=== PATIENT | female | born 1955 | race Caucasian/White ===

== ENCOUNTER → 2025-06-17 09:10 | Outpatient (BNVA) | payer MEDICARE, SELFPAY | PROVIDERS: PCP Physician Assistant Medical; Referring Provider Physician Assistant Medical; Visit Provider Student in an Organized Health Care Education/Training Program | DX: M16.12 Unilateral primary osteoarthritis, left hip (principal) | CPT/HCPCS: 99203 ==

== ENCOUNTER 2025-07-29 13:04 | Outpatient (CLI) | payer MEDICARE, SELFPAY ==
--- NOTE | 2025-07-29 10:00 | DI.RAD_ITS ---
Exam(s) XR PELVIS AP EXAM: XR PELVIS AP CLINICAL HISTORY: PRE OP L [facility]. TECHNIQUE: 2D digital imaging was performed. Single AP view. COMPARISON: CR XR HIP MIN 2V LT from 03/30/2024 FINDINGS: BONES: No acute fracture is present. No bony destructive lesion is seen. JOINTS: No dislocation present. Severe narrowing of the left hip joint space, greater superiorly. Prominent periarticular spurring and subchondral cyst formation. There is also flattening of the femoral head and remodeling of the acetabulum. There are [id number] degenerative changes of the right hip. SOFT TISSUE: Large calcified uterine fibroid. Surgical clip in pelvis. Vascular calcifications. IMPRESSION: End-stage degenerative changes of the left hip. DATA REPOSITORY: RADIATION DOSE DELIVERED:
== END 2025-07-29 13:05 | disposition home or self-care (01) ==
LOC: DIORS 13:04
PROVIDERS: PCP Student in an Organized Health Care Education/Training Program; Referring Provider Physician Assistant Medical; Visit Provider Physician Assistant
DX: Z01.818 Encounter for other preprocedural examination (principal); M16.12 Unilateral primary osteoarthritis, left hip
CPT/HCPCS: 99024; 72170

== ENCOUNTER 2025-08-06 08:15 | Day surgery (SDC) | payer MEDICARE, SELFPAY ==
--- NOTE | 2025-08-06 07:30 | PDOC.DSDIS_ITS ---
Date of service: 08/06/25 Discharge Plan Disposition Patient Disposition: Home Condition: Good Discharge Details Reason For Visit: Left hip DJD Attending Provider: Corbin Hayden Primary Care Provider: Katherine Herrera Home Meds and New Rx's Prescriptions: New acetaminophen 500 mg tablet 1,000 mg PO Q8H PRN Qty: 90 0RF Rx Instructions: Take two tablets up to every 8 hours as needed for pain aspirin 81 mg tablet,delayed release (DR/EC) 81 mg PO BID 30 Days Qty: 60 0RF celecoxib [Celebrex] 200 mg capsule 200 mg PO BID PRNQty: 60 0RF Rx Instructions: Take one tablet twice daily for pain and inflammation docusate sodium [Colace] 100 mg capsule 100 mg PO BID Qty: 28 0RF tramadol 50 mg tablet 50 mg PO Q6H PRN (Reason: severe postoperative pain) Qty: 12 0RF Rx Instructions: Take one tablet up to every 6 hours as needed for severe pain dexamethasone 4 mg tablet 4 mg PO DAILY Qty: 2 0RF Rx Instructions: Take one tablet once daily for two days Continued gabapentin 600 mg tablet 600 mg PO BID metoprolol succinate 200 mg tablet extended release 24 hr 200 mg PO DAILY gemfibrozil 600 mg tablet 600 mg PO DAILY oxybutynin chloride 5 mg tablet 5 mg PO DAILY spironolactone 50 mg tablet 50 mg PO DAILY Calcium 600 with Vitamin D3 600 mg-10 mcg (400 unit) tablet,chewable 1 tab PO DAILY loratadine 10 mg tablet 10 mg PO HS omeprazole 40 mg capsule,delayed release(DR/EC) 40 mg PO DAILY Discharge Instructions Additional Instructions: Total Hip Discharge Instructions Activity: The most important activity is to walk. You should try to take short walks a few times a day. You have no restrictions on movement or positioning, but do not try to force what you do. You will find some stiffness and weakness with hip flexion (lifting your knee). Do not try to strengthen this too early, continue to practice walking and stairs and this will come. - Outpatient physical therapy can be helpful to help return you to a normal gait and improve your flexibility and strength. This can start around 2 weeks. For some patients, it´s not necessary. Usually this is determined at the time of discharge or at the first post-operative visit. - You should wear the ESME hose on both legs for 2 weeks. Dressing: Keep the surgical dressing in place for at least one week. After the first week it may be removed and replace with light gauze and tape or nothing. It may get wet after 3 days but avoid soaking the dressing. If it gets wet, just lightly pat dry. It is important to always keep some gauze between skin folds, especially when you are sitting. Spend some time with the wound exposed when you are lying flat as the incision does wrinkle onto itself. Medications: - You should take Tylenol and an anti-inflammatory Celebrex as your primary pain control medications. If the Celebrex is too expensive or not covered, please call the office for another alternative (Advil/Ibuprofen or Naproxen/Aleve). - You have been prescribed a stronger pain medication Tramadol for breakthrough pain, take as needed as prescribed. - You take a stomach acid reduction agent Omeprazole at baseline - continue with this medication to help reduce stomach acid and reflux. - You have also been prescribed Decadron to help with post-operative nausea and pain. You will take this for two days starting tomorrow. - You will be taking Aspirin 81mg twice a day for DVT prevention unless instructed otherwise. - If you have constipation you should take Colace (which has been prescribed) or Miralax (which is available [id number]). It takes most people 3-4 days to have a bowel movement. Follow-up: 2 weeks If you have any acute concerns or questions, please do not hesitate to contact the office at [phone]. You may contact Dr. Hayden with any questions after hours through the hospital at [phone] or on his cell phone at [phone]. Stand Alone Forms: Anesthesia Discharge Inst., [facility] Bowling ([facility]), Portal Information Referrals: Corbin Hayden MD [ [facility] STAFF PHYSICIAN, Orthopaedic Surgical] Equipment/Supplies: Walker Activity:: Elevate Remove Dressings/Wound Care:: Do Not Remove Shower/Bathe:: Cover Diet:: As Tolerated Discharge Orders Discharge Orders: Discharge Order (Routine); Ordered 08/06/25 Ordered By: Shante Duron
[2025-08-06 08:55] VITALS: BP 186/87; PULSE 75; RESP 18; TEMP 36.2; O2SAT 97
[2025-08-06] MEDS: Celecoxib 200 MG CAP 400 MG PO (09:04)
[2025-08-06] MEDS: Acetaminophen 500 MG TAB 1000 MG PO (09:04)
[2025-08-06] MEDS: Lactated Ringers 1,000 ML 80 ML IV (09:31)
--- NOTE | 2025-08-06 10:00 | W.ANESPRE ---
General Info Date of Service Date Performed: 08/06/25 Height: 5 ft 3 in Weight: 76.5 kg Body Mass Index (BMI): 29.8 Surgical Procedure: Operation Date: 08/06/25 10:35 Proposed Procedure Side Surgeon p Hip Total Hip Anterior Left Corbin Hayden MD Actual Procedure Side Surgeon p Hip Total Hip Anterior Left Corbin Hayden MD Pre-Op Diagnosis Post-Op Diagnosis Osteoarthritis of left hip Meds Allergies and Home Medications Allergies Allergy/AdvReac Type Severity Reaction Status Date / Time morphine Allergy Severe Unknown Verified 08/06/25 08:46 lidocaine (From Xylocaine) Allergy Intermediate Skin Rash Verified 08/06/25 08:46 codeine Allergy Other (See Verified 08/06/25 08:46 Comment) egg Allergy Anaphylaxis Verified 08/06/25 08:46 Penicillins Allergy Unknown Verified 08/06/25 08:46 Home Medication Medication Instructions Recorded gabapentin 600 mg tablet 600 mg PO BID 04/09/25 gemfibrozil 600 mg tablet 600 mg PO DAILY 04/09/25 metoprolol succinate 200 mg 200 mg PO DAILY 04/09/25 tablet,extended release 24 hr oxybutynin chloride 5 mg tablet 5 mg PO DAILY 04/09/25 spironolactone 50 mg tablet 50 mg PO DAILY 04/09/25 calcium 600 mg (as carbonate)-vit 1 tab PO DAILY 06/17/25 D3 10 mcg (400 unit) chewable tablet (Calcium 600 with Vitamin D3) loratadine 10 mg tablet 10 mg PO HS 07/29/25 omeprazole 40 mg capsule,delayed 40 mg PO DAILY 08/02/25 release acetaminophen 500 mg tablet 1,000 mg (2 x 500 mg) PO Q8H PRN 08/06/25 pain #90 tabs aspirin 81 mg tablet,delayed 81 mg PO BID 30 days #60 tabs 08/06/25 release celecoxib 200 mg capsule (Celebrex) 200 mg PO BID PRN #60 caps 08/06/25 dexamethasone 4 mg tablet 4 mg PO DAILY #2 tabs 08/06/25 docusate sodium 100 mg capsule 100 mg PO BID #28 caps 08/06/25 (Colace) tramadol 50 mg tablet 50 mg PO Q6H PRN severe 08/06/25 postoperative pain #12 tabs Current Visit Medications: Current Medications Generic Name Dose Route Start Last Admin Trade Name Freq PRN Reason Stop Dose Admin Acetaminophen 1,000 mg 08/06/25 06:00 08/06/25 09:04 Acetaminophen 500 Mg Tab PO 08/06/25 23:59 1,000 mg PREOP COBY Administration Celecoxib 400 mg 08/06/25 06:00 08/06/25 09:04 Celecoxib 200 Mg Cap PO 08/06/25 23:59 400 mg PREOP COBY Administration Ringer's Solution 1,000 mls @ 80 mls/hr 08/06/25 06:00 08/06/25 09:31 IV 08/06/25 23:59 80 mls/hr INFUSION COBY Administration Cefazolin Sodium/Dextrose 2 gm in 50 mls @ 100 mls/hr 08/06/25 06:00 Ancef Duplex IVPB 08/06/25 23:59 PREOP COBY Tranexamic Acid/Sodium Chloride 1,000 mg in 100 mls @ 600 mls/hr 08/06/25 06:00 IVPB 08/06/25 23:59 PREOP COBY Cefazolin Sodium/Dextrose 1 gm in 50 mls @ 100 mls/hr 08/06/25 08:00 Ancef Duplex IVPB 08/07/25 00:29 Q8H COBY IV Miscellaneous Supplies 1 each 08/06/25 06:00 Iv Access IV 08/06/25 23:59 DIRECTED COBY Sodium Chloride 0 ml 08/06/25 06:00 Normal Saline Flush 10 Ml Syr IV 08/06/25 23:59 PRN PRN Sodium Chloride 0 ml 08/06/25 06:00 Normal Saline 10 Ml Vial IJ 08/06/25 23:59 DIRECTED PRN Sterile Water 0 ml 08/06/25 06:00 Water,Injection,Sterile 10 Ml Vial IJ 08/06/25 23:59 DIRECTED PRN Tramadol HCl 50 mg 08/06/25 07:29 Tramadol 50 Mg Tab PO 09/05/25 07:28 Q4H PRN PRN Pain Tranexamic Acid 1,300 mg 08/06/25 07:29 Tranexamic Acid 650 Mg Tab PO 09/05/25 07:28 ONCE PRN postoperative PFSH Active Problems Active Problems: Problem Status Onset Code Osteoarthritis of left hip Chronic M16.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 Surgical History Surgical History History of laminectomy C3-6 02/2024 Tobacco Smoking/Tobacco Use Status: Former Tobacco Use Passive smoking exposure: Yes Alcohol Alcohol Intake: current Alcohol intake frequency: holidays/special occasions only Alcohol type: beer Substance Use Substance use: Never Substance use type: does not use Vital Signs and Lab Results Vital Signs Most Recent Vital Signs in EMR: Most Recent Vital Signs Temp Pulse Resp BP Pulse Ox 36.2 C L 75 18 186/87 H 97 08/06/25 08:55 08/06/25 08:55 08/06/25 08:55 08/06/25 08:55 08/06/25 08:55 Imaging and Studies Imaging and Studies Study information below may be from another EMR and interpreted by another provider. Please see original notes in EMR for more complete details. EKG Summary: 07/10/25: NSR, old inferior infarct Anesthesia Assessment and Plan Anesthesia History Personal History: No History of Anesthesia Complications Family History: No Family History of Anesthesia Complications Exercise Tolerance Exercise Tolerance: Metabolic Equivalents>4 Pertinent Negatives Pertinent Negatives: No Symptoms of GERD Cardiac & Pulmonary Exam Cardiac Exam: Heart Murmur Present Pulmonary Exam: Clear Bilateral Breath Sounds Implantable Cardiac Device Does patient have a Pacemaker or an ICD?: No Airway Exam Known Difficult Airway: No Mallampati Class: 3 Mouth Opening: Normal (> 3cm) Thyromental Distance: Greater than 3 cm Neck Range of Motion: Full ROM Neck Circumference: Normal Teeth Condition: Removable Dentures/Plates Upper and Removable Dentures/Plates Lower ASA Classification ASA Score: ASA 3 Emergency Case?: No NPO Status NPO Status: NPO Clears >2 hours, Solids >8 hours Anesthesia Plan Resuscitation Status: Full Code Anesthesia Technique: General Anesthesia Airway Planned: Endotracheal Tube Monitors Used: Standard Monitors Preoperative Comments:: GA at [facility] for cervical surgery, patient reported intolerance to Oxycodone. Patient reports a cardiac murmur since she was 17.
--- NOTE | 2025-08-06 11:07 | ANES_ITS ---
Date of service: 08/06/25 Time of Service: 11:07 Anesthesia Note Report Anesthesia Note: Patient found to have 3-4/6 systolic murmur on auscultation that was first described by the nurse on initial intake. The patient is severly limited in her mobility due to her significant hip OA and accurate METs cannot be assessed. An extensive conversation was had with the patient who reports she has never had the murmur evaluated. The PCP note as well as [facility] anesthesia preoperative exam from 2023 additionally does not document the murmur. Given the patient's co- morbidities and after conversation with Dr. Hayden, it was decided to postpone the patient today and schedule an echo. The patient and spouse were informed, verbal discussion around the rationale was provided. The patient and spouse were disappointed today, but understood. The orthopedic clinic will follow up with the patient and get them rescheduled when appropriate.
== END 2025-08-06 08:16 | disposition home or self-care (01) ==
LOC: SUR 08:16
PROVIDERS: PCP Student in an Organized Health Care Education/Training Program; Visit Provider Student in an Organized Health Care Education/Training Program
DX: Z53.09 Procedure and treatment not carried out because of other contraindication (principal); R01.1 Cardiac murmur, unspecified; M16.12 Unilateral primary osteoarthritis, left hip
CPT/HCPCS: J1100; J2405; J2704